=== PATIENT | male | born 1995 | race Caucasian/White ===

== ENCOUNTER 2020-05-23 13:02 | Emergency (ER) | payer MEDICAID, SELFPAY ==
[~2020-05-23] VITALS: Ht 170.2 cm; Wt 63.5 kg
[2020-05-23 13:14] VITALS: Ht 170.2 cm; Wt 63.5 kg
[2020-05-23 15:34] VITALS: BP 125/84
== END 2020-05-23 15:34 | disposition home or self-care (01) ==
LOC: ED 13:02
DX: R51.9 Headache, unspecified (principal); R07.89 Other chest pain; R06.02 Shortness of breath; Z20.828 Contact with and (suspected) exposure to other viral communicable diseases
CPT/HCPCS: U0003